=== PATIENT | female | born 1960 | race Caucasian/White ===

== ENCOUNTER 2022-10-23 03:22 | Emergency (ER) | payer OTHER ==
[2022-10-23 04:08] LABS: ESTIMATED GFR 51 mL/min (>60)
[2022-10-23 04:20] LABS: CORONAVIRUS COVID-19 NAA NEGATIVE (NEGATIVE)
== END 2022-10-23 05:02 | disposition home or self-care (01) ==
LOC: JP.ED 03:22
DX: J10.1 Influenza due to other identified influenza virus with other respiratory manifestations (principal); J45.909 Unspecified asthma, uncomplicated; N18.9 Chronic kidney disease, unspecified; Z91.041 Radiographic dye allergy status; Z88.1 Allergy status to other antibiotic agents; Z79.899 Other long term (current) drug therapy; Z20.822 Contact with and (suspected) exposure to COVID-19
CPT/HCPCS: 0241U; 36415; 80053; 81001; 82533; 83605; 85025; 86140; 93005; 99284